=== PATIENT | male | born 1955 | race Caucasian/White ===

== ENCOUNTER 2018-07-12 08:07 | Day surgery (SDC) | payer BC ==
[~2018-07-12 08:07] MED LIST: BUPIVACAINE HCL 0.75% INJ/PF (7.5 MG/1 ML) 10 ML SDV OD PRN; KETOROLAC TROMETHAMINE 0.45% 4 DROP/0.4 ML DROPERETTE OD PRN; LIDOCAINE 4% INJ/PF (40 MG/ML) 5 ML AMPUL OD PRN
[2018-07-12] MEDS ORDERED: EPINEPHRINE INJ/PF 1 MG/1 ML AMPULE ONE (08:11)
[2018-07-12] MEDS ORDERED: LIDOCAINE 1% INJ-PF (10 MG/ML) 30 ML SDV ONE (08:11)
[2018-07-12] MEDS ORDERED: CHONDR SU A NA/HYALUR INTRAOC KIT (SURGICARE) ONE (08:11)
[2018-07-12] MEDS: TETRACAINE HCL 0.5% OPH SOLN 0.6 ML DROPERETTE OD PRN ×2 (09:01→09:25)
[2018-07-12] MEDS: TROPICAMIDE 1% OPH SOLN 3 ML OD PRN ×3 (09:02→09:25)
[2018-07-12] MEDS: CYCLOPENTOLATE 0.2%/PHENYLEPHRINE 1% OPH SOLN 2 ML OD PRN ×3 (09:02→09:25)
[2018-07-12] MEDS: BESIFLOXACIN HCL 0.6% OPH SUSP 5 ML BOTTLE OD PRN ×4 (09:02→10:03)
[2018-07-12] MEDS ORDERED: MIDAZOLAM 2 MG/2 ML INJ ONE (09:17)
[2018-07-12] MEDS ORDERED: FENTANYL CITRATE INJ/PF 100 MCG/2 ML AMPUL ONE (09:17)
[2018-07-12] MEDS: DORZOLAMIDE HCL 2%/TIMOLOL MALEAT 0.5% OPH SOLN 10 ML OD PRN ×2 (10:03)
--- NOTE | 2018-07-12 10:58 | [facility] OPERATIVE REPORT E ---
[facility] Operative Report NAME: SHARRON CONTEH AGE: 62Y DATE OF SURGERY: 07/12/2018 ROOM: PREOPERATIVE DIAGNOSIS: Cataract, right eye. POSTOPERATIVE DIAGNOSIS: Cataract, right eye. PROCEDURE PERFORMED: Phacoemulsification with posterior chamber intraocular lens, right eye. SURGEON: RADHA GORDILLO M.D. ANESTHESIA: Topical with MAC. INDICATIONS FOR SURGERY: Difficulty with night driving. PROCEDURE: The patient was brought to the operating room and placed on the operative table. Following tetracaine drops, topical anesthesia was administered. This consisted of instrument wipe pledgets soaked in a solution of 4% Xylocaine mixed with 0.75% Marcaine in a 1:2 ratio. A 2 x 1 cm pledget was placed in the superior fornix. A 1 x 1 cm pledget was placed in the inferior fornix. The eye was patched shut for 5 minutes. The patch was removed. The eye was sterilely prepped and draped in the usual manner. Lid speculum was placed in the eye. The pledgets were removed and 4-0 black silk sutures were placed around the superior and the inferior rectus muscles to be used as traction. A conjunctival peritomy was made at the 10 o'clock position. Hemostasis was obtained with bipolar cautery. A posterior limbal groove was created using a crescent knife and dissected anteriorly towards the cornea. A sharp point blade was used to create a paracentesis site at the 2 o'clock position. A 2.4 mm keratome was used to enter the anterior chamber through the groove. Viscoelastic was injected into the anterior chamber. An anterior capsulotomy was performed using Utrata forceps in a capsulorrhexis fashion. Hydrodissection and hydrodelineation were performed. Phacoemulsification was performed in golbhb-pvs-rtjvojh technique. Total phaco time was 3.56 CDE. Following this, the I/A unit was used to remove residual cortex. Viscoelastic was injected into the capsular bag. Intraocular lens model SN60WF, 13.0 diopters, serial number [id number], was placed in the capsular bag. The I/A unit was used to remove residual viscoelastic. The wound was seen to be watertight under high and low pressure, and no sutures were placed. The intraocular lens was well centered. The pressure was adjusted in the eye to normal pressure. The 4-0 black silk sutures and lid speculum were removed. The eye was shielded after Besivance drops were placed. The patient tolerated the procedure well and was sent to the recovery room in good condition. A drop of Cosopt was placed in the eye at the end of the surgery. DICTATING PHYSICIAN: RADHA GORDLILO M.D. [id number] PHY#: [id number] ID: [id number] JOB#: [id number] ACCT: [id number] cc:RADHA GORDILLO M.D. >
--- NOTE | 2018-07-12 10:58 | [facility] DISCHARGE SUMMARY E ---
[facility] Discharge Summary NAME: SHARRON CONTEH AGE: 62Y ADMITTED: 07/12/2018 DISCHARGED: 07/12/2018 FINAL DIAGNOSIS: Cataract, right eye. HOSPITAL COURSE: The patient is a 62-year-old gentleman who underwent uneventful cataract extraction with intraocular lens implant, right eye, on 07/12/2018. He will be discharged to home. He was instructed to resume preoperative medications; to take Tylenol as needed for discomfort; to keep his eye shielded; to use Durezol, Prolensa, and Besivance at 3 p.m. and 8 p.m.; and to follow up in my office in 1 day. DICTATING PHYSICIAN: RADHA GORDILLO M.D. [id number] PHY#: [id number] ID: [id number] JOB#: [id number] ACCT: [id number] cc:RADHA GORDILLO M.D. >
== END 2018-07-12 10:43 | disposition home or self-care (01) ==
LOC: SC 08:07
PROVIDERS: ATTEND Ophthalmology
DX: H25.813 Combined forms of age-related cataract, bilateral (principal); H40.033 Anatomical narrow angle, bilateral; H35.3131 Nonexudative age-related macular degeneration, bilateral, early dry stage; H43.813 Vitreous degeneration, bilateral; H52.4 Presbyopia; E11.9 Type 2 diabetes mellitus without complications; I11.9 Hypertensive heart disease without heart failure; E78.00 Pure hypercholesterolemia, unspecified; I25.2 Old myocardial infarction; R01.1 Cardiac murmur, unspecified; Z87.891 Personal history of nicotine dependence; Z79.82 Long term (current) use of aspirin; Z79.899 Other long term (current) drug therapy; Z79.4 Long term (current) use of insulin
CPT/HCPCS: 66984; V2632; J2250; J3490 ×4; J0171; J3010; 142

== ENCOUNTER 2018-08-02 09:25 | Day surgery (SDC) | payer BC ==
[~2018-08-02 09:25] MED LIST changes: -BUPIVACAINE HCL 0.75% INJ/PF (7.5 MG/1 ML) 10 ML SDV OD PRN; +BUPIVACAINE HCL 0.75% INJ/PF (7.5 MG/1 ML) 10 ML SDV OS PRN; +CHONDR SU A NA/HYALUR INTRAOC KIT (SURGICARE) ONE; +EPINEPHRINE INJ/PF 1 MG/1 ML AMPULE ONE; -KETOROLAC TROMETHAMINE 0.45% 4 DROP/0.4 ML DROPERETTE OD PRN; +KETOROLAC TROMETHAMINE 0.45% 4 DROP/0.4 ML DROPERETTE OS PRN; +LIDOCAINE 1% INJ-PF (10 MG/ML) 30 ML SDV ONE; -LIDOCAINE 4% INJ/PF (40 MG/ML) 5 ML AMPUL OD PRN; +LIDOCAINE 4% INJ/PF (40 MG/ML) 5 ML AMPUL OS PRN
[2018-08-02] MEDS ORDERED: MIDAZOLAM 2 MG/2 ML INJ ONE (10:18)
[2018-08-02] MEDS: CYCLOPENTOLATE 0.2%/PHENYLEPHRINE 1% OPH SOLN 2 ML OS PRN ×3 (10:55→11:12)
[2018-08-02] MEDS: TROPICAMIDE 1% OPH SOLN 3 ML OS PRN ×3 (10:55→11:12)
[2018-08-02] MEDS: TETRACAINE HCL 0.5% OPH SOLN 0.6 ML DROPERETTE OS PRN ×2 (10:56→11:14)
[2018-08-02] MEDS: BESIFLOXACIN HCL 0.6% OPH SUSP 5 ML BOTTLE OS PRN ×4 (10:56→11:55)
[2018-08-02] MEDS: DORZOLAMIDE HCL 2%/TIMOLOL MALEAT 0.5% OPH SOLN 10 ML OS PRN ×2 (11:55)
--- NOTE | 2018-08-02 13:31 | [facility] OPERATIVE REPORT E ---
[facility] Operative Report NAME: SHARRON CONTEH AGE: 62Y DATE OF SURGERY: 08/02/2018 ROOM: PREOPERATIVE DIAGNOSIS: Cataract, left eye. POSTOPERATIVE DIAGNOSIS: Cataract, left eye. PROCEDURE PERFORMED: Phacoemulsification with posterior chamber intraocular lens, left eye. SURGEON: RADHA GORDILLO M.D. ANESTHESIA: Topical with MAC. PROCEDURE: The patient was brought to the Operating Room and placed on the operative table. Following tetracaine drops, topical anesthesia was administered. This consisted of instrument wipe pledgets soaked in a solution of 4% Xylocaine mixed with 0.75% Marcaine in a 1:2 ratio. A 2 x 1 cm pledget was placed in the superior fornix. A 1 x 1 cm pledget was placed in the inferior fornix. The eye was patched shut for 5 minutes. The patch was removed. The eye was sterilely prepped and draped in the usual manner. Lid speculum was placed in the eye. The pledgets were removed. 4-0 black silk sutures were placed around the superior and the inferior rectus muscles to be used as traction. A conjunctival peritomy was made at the 10 o'clock position. Hemostasis was obtained with bipolar cautery. A posterior limbal groove was created using a crescent knife and dissected anteriorly towards the cornea. A sharp point blade was used to create a paracentesis site at the 2 o'clock position. A 2.4 mm keratome was used to enter the anterior chamber through the groove. Viscoelastic was injected into the anterior chamber. An anterior capsulotomy was performed using Utrata forceps in a capsulorrhexis fashion. Hydrodissection and hydrodelineation were performed. Phacoemulsification was performed in koiowm-ffs-qmsmeut technique. A total of 2.93 CDE phaco time was used. Following this, the I/A unit was used to remove residual cortex. Viscoelastic was injected into the capsular bag. Intraocular lens model SN60WF, 14.0 diopters, serial number [id number] was placed in the capsular bag. The I/A unit was used to remove residual viscoelastic. The wound was seen to be watertight under high and low pressure, and no sutures were placed. The intraocular lens was well centered. The pressure was adjusted in the eye to normal pressure. The 4-0 black silk sutures and lid speculum were removed. The eye was shielded after Besivance drops were placed. The patient tolerated the procedure well and was sent to the Recovery Room in good condition. DICTATING PHYSICIAN: RADHA GORDILLO M.D. [id number] PHY#: [id number] ID: [id number] JOB#: [id number] ACCT: [id number] cc:RADHA GORDILLO M.D. >
--- NOTE | 2018-08-02 13:31 | [facility] DISCHARGE SUMMARY E ---
[facility] Discharge Summary NAME: SHARRON CONTEH AGE: 62Y ADMITTED: 08/02/2018 DISCHARGED: 08/02/2018 HOSPITAL COURSE: The patient is a 62-year-old gentleman who underwent uneventful cataract extraction with intraocular lens implant left eye on 08/02/2018. He will be discharged to home. He is instructed to resume preoperative medications, to take Tylenol as needed for discomfort, to keep his eye shielded, to use Besivance, Durezol, and Prolensa at 3 p.m. and 8 p.m., and to follow up in my office in 1 day. DICTATING PHYSICIAN: RADHA GORDILLO M.D. [id number] PHY#: [id number] ID: [id number] JOB#: [id number] ACCT: [id number] cc:RADHA GORDILLO M.D. >
== END 2018-08-02 12:28 | disposition home or self-care (01) ==
LOC: SC 09:25
PROVIDERS: ATTEND Ophthalmology
DX: H25.812 Combined forms of age-related cataract, left eye (principal); Z96.1 Presence of intraocular lens; K21.9 Gastro-esophageal reflux disease without esophagitis; Z88.0 Allergy status to penicillin
CPT/HCPCS: 66984; V2632; J2250; J3490 ×4; J0171; 142